=== PATIENT | female | born 1960 | race Two or more races ===

== ENCOUNTER 2025-02-12 16:20 | Emergency (ER) | payer OTHER ==
[~2025-02-12] VITALS: Ht 157.5 cm; Wt 97.1 kg
[2025-02-12] MEDS ORDERED: COZAAR25 MG PO (17:07)
[2025-02-12] MEDS ORDERED: METFORMIN HCL500 M3 (17:07)
[2025-02-12] MEDS ORDERED: SYNTHROID75 MCG PO (17:07)
== END 2025-02-12 19:17 | disposition home or self-care (01) ==
LOC: ER 16:21
DX: L76.22 Postprocedural hemorrhage of skin and subcutaneous tissue following other procedure (principal); E11.9 Type 2 diabetes mellitus without complications; E03.8 Other specified hypothyroidism; I10 Essential (primary) hypertension; Z79.84 Long term (current) use of oral hypoglycemic drugs